=== PATIENT | female | born 1975 | race Caucasian/White ===

== ENCOUNTER 2017-02-15 11:38 | Emergency (ER) | payer SELFPAY | END 2017-02-15 16:25 | disposition home or self-care (01) | LOC: ER 11:38 | DX: N23 Unspecified renal colic (principal); N83.201 Unspecified ovarian cyst, right side; Z87.442 Personal history of urinary calculi; Z79.899 Other long term (current) drug therapy | CPT/HCPCS: 36415; 96361; 96374; 96375; J1885 ==